=== PATIENT | male | born 1975 | race Caucasian/White ===

== ENCOUNTER 2016-05-21 23:09 | Emergency (ER) | payer OTHER ==
[~2016-05-21] VITALS: Ht 175.3 cm; Wt 68.0 kg
[2016-05-21 23:09] VITALS: BP_SYST 108
[2016-05-21] MEDS ORDERED: methylPREDNISolone SOD SUCC/PF 62.5 MG/ML VIAL IVP ONE (23:30)
[2016-05-21] MEDS ORDERED: FAMOTIDINE PF 20 MG/2 ML VIAL IVP ONE (23:30)
[2016-05-21] MEDS ORDERED: NS 500 ML IV ONE (23:30)
[2016-05-21] MEDS ORDERED: DIPHENHYDRAMINE INJ 50 MG/ML VIAL IVP ONE (23:30)
[2016-05-22 00:49] VITALS: BP_SYST 107
== END 2016-05-22 00:49 | disposition home or self-care (01) ==
LOC: SED 23:09
DX: T78.40XA Allergy, unspecified, initial encounter (principal); H57.8 Other specified disorders of eye and adnexa; R06.02 Shortness of breath; X58.XXXA Exposure to other specified factors, initial encounter
CPT/HCPCS: 82962; 96361; 96374; 96375; 99284; J1200; J2930; J3490; J7030

== ENCOUNTER 2017-03-30 13:07 | Emergency (ER) | payer OTHER ==
[~2017-03-30] VITALS: Ht 177.8 cm; Wt 68.0 kg
[2017-03-30 13:16] VITALS: BP_SYST 136
[2017-03-30] MEDS ORDERED: KETOROLAC TROMETHAMINE 60 MG/2 ML VIAL IM ONE (13:30)
[2017-03-30 14:19] VITALS: BP_SYST 136
== END 2017-03-30 14:19 | disposition home or self-care (01) ==
LOC: SED 13:07
DX: S62.001A Unspecified fracture of navicular [scaphoid] bone of right wrist, initial encounter for closed fracture (principal); S16.1XXA Strain of muscle, fascia and tendon at neck level, initial encounter; R03.0 Elevated blood-pressure reading, without diagnosis of hypertension; E11.9 Type 2 diabetes mellitus without complications; V23.4XXA Motorcycle driver injured in collision with car, pick-up truck or van in traffic accident, initial encounter; Y93.55 Activity, bike riding; Y92.410 Unspecified street and highway as the place of occurrence of the external cause; Y99.8 Other external cause status
CPT/HCPCS: 29125; 73110; 96372; 99284; J1885